=== PATIENT | female | born 1990 | race Caucasian/White ===

== ENCOUNTER 2017-03-05 02:00 | Emergency (ER) | payer MEDICAID ==
[~2017-03-05] VITALS: Ht 157.5 cm; Wt 63.0 kg
[2017-03-05 02:04] VITALS: Ht 157.5 cm; Wt 63.0 kg
[2017-03-05] MEDS ORDERED: HYDROCODONE/APAP (5/325) TAB PO ONE (03:30)
[2017-03-05] MEDS ORDERED: HYDR-906 PO (03:56)
--- NOTE | 2017-03-05 04:41 | ERD ---
ER Documentation Chief Complaint Date/Time DATE: 03/05/17 TIME: 04:39 Chief Complaint pain and swelling to lower jaw and sores in mouth since tuesday HPI This is a 26-year-old female presents to the ER with pain and swelling to her lower jaw and with sores in her mouth after dental procedure that was done 3 days ago. Patient had multiple fillings and stated that her jaw is very sore. Patient denies any fevers or chills. Denies any swelling of her face. Patient has not taken anything for the pain. ROS 12 point review of systems was done, all negative except per HPI. Medications Home Meds Active Scripts Hydrocodone/Acetaminophen (Amity 5-325 Tablet) 1 Each Tablet, 1 TAB PO Q6H Y for PAIN, #20 TAB Prov:EV CALDERON Jcarlos 03/05/17 Allergies Allergies: Coded Allergies: No Known Allergy (Unverified , 03/05/17) PMhx/Soc Hx Alcohol Use: No Hx Substance Use: No Hx Tobacco Use: No Smoking Status: Never smoker Physical Exam Vitals Vital Signs Date Time Temp Pulse Resp B/P Pulse Ox O2 Delivery O2 Flow Rate FiO2 03/05/17 02:04 98.5 56 20 134/76 99 Physical Exam GENERAL: The patient is well developed and appropriate for usual state of health , in no apparent distress. HEENT: Atraumatic. Multiple knee fillings are seen in the lower jaw, patient has full range of motion of her jaw. There are some aphthous ulcers present. There is no gum swelling or facial swelling. CHEST: Clear to auscultation bilaterally. There are no rales, wheezes or rhonchi. HEART: Regular rate and rhythm. No murmurs, clicks, rubs or gallops. NEURO: Alert and oriented Results 24 hrs Current Medications Medications (Trade) Dose Ordered Sig/Dinora Route PRN Reason Start Time Stop Time Status Last Admin Dose Admin Acetaminophen/ Hydrocodone Bitart (Amity (5/325)) 1 tab ONCE ONCE PO 03/05/17 03:30 03/05/17 03:31 DC 03/05/17 03:14 Procedures/MDM This is a 26-year-old female presents to the ER with jaw pain after dental procedure, this is likely normal given that a lot of dental work was done. Patient also has aphthous ulcers. Suspicion for dental abscess, Jarett's angina , deep Venous thrombosis is low. Patient did not have any tenderness to the bottom of her mouth and there was no evidence of swelling. Patient is afebrile and extremely well-appearing. He will be sent home with Amity and Magic mouthwash. She is to follow-up with her primary care doctor within 1-2 days return to ER sooner if symptoms worsen. My medical decision making sure with the patient she understands and agrees with plan. Departure Diagnosis: Primary Impression: Pain, dental Condition: Stable Patient Instructions: Dental Pain Additional Instructions: Llame al doctor MAANA y desi dani MARISSA PARA DENTRO DE 1-2 ARGUETA.Dgale a la secretaria que nosotros le instruimos hacer esta marissa.Avise o llame si damon condicin se empeora antes de la marissa. Regresa aqui si peor o no mejor. EV CALDERON Mar 05, 2017 04:41
== END 2017-03-05 04:17 | disposition home or self-care (01) ==
LOC: FTE 02:00
DX: K08.89 Other specified disorders of teeth and supporting structures (principal)
CPT/HCPCS: Z7502; Z7610; 99283